=== PATIENT | female | born 1935 ===

== ENCOUNTER → 2023-04-07 06:53 | Outpatient (CLI) | payer OTHER | END | disposition home or self-care (01) | LOC: LAB 06:53 | PROVIDERS: ATTEND Orthopaedic Surgery Hand Surgery | DX: Z01.810 Encounter for preprocedural cardiovascular examination (principal); E11.9 Type 2 diabetes mellitus without complications; E78.3 Hyperchylomicronemia; E78.00 Pure hypercholesterolemia, unspecified; D65 Disseminated intravascular coagulation [defibrination syndrome]; D66 Hereditary factor VIII deficiency; N39.0 Urinary tract infection, site not specified; I10 Essential (primary) hypertension ==